=== PATIENT | male | born 1995 | race Caucasian/White ===

== ENCOUNTER 2019-04-20 12:49 | Emergency (ER) | payer SELFPAY ==
[~2019-04-20] VITALS: Ht 182.9 cm; Wt 85.5 kg
[2019-04-20 13:00] VITALS: BP 153/74; PULSE 78; RESP 24; Ht 182.9 cm; Wt 85.5 kg
[2019-04-20] MEDS ORDERED: BENZ-6 PO (14:17)
[2019-04-20] MEDS ORDERED: AZIT250T PO (14:17)
--- NOTE | 2019-04-20 14:21 | ERD ---
ER Documentation Chief Complaint Chief Complaint cough, sore thoat x 5 days HPI Patient is a 23-year-old male, no past medical history, presents the ER for concerns of a cough, congestion and sore throat x1 week. Patient states his cough nature. Patient reports using NyQuil and DayQuil with minimal alleviation of symptoms. Patient denies fevers or chills. Patient denies any chest pain or shortness of breath. Patient's daughter is a sick contact. ROS All systems reviewed and are negative except as per history of present illness. Medications Home Meds Active Scripts Azithromycin* (Zithromax*) 250 Mg Tablet, 250 MG PO .ZPACK DIRECTED, #6 TAB TAKE 500 MG (2 TABS) THE FIRST DAY THEN 250 MG (1 TAB) DAYS 2-5 Prov:MIKHAIL APONTE PA-C 04/20/19 Benzonatate* (Tessalon Perle*) 100 Mg Capsule, 100 MG PO Q8H PRN for COUGH, #20 CAP Prov:MIKHAIL APONTE PA-C 04/20/19 Allergies Allergies: Coded Allergies: No Known Allergy (Unverified , 07/01/13) PMhx/Soc Hx Alcohol Use: No Hx Substance Use: No Smoking Status: Never smoker FmHx Family History: No diabetes Physical Exam Vitals Vital Signs Date Temp Pulse Resp B/P (MAP) Pulse Ox O2 O2 Flow FiO2 Time Delivery Rate 04/20/19 98.5 78 24 153/74 98 13:00 (100) Physical Exam GENERAL: Well-developed, well-nourished male. Appears in no acute distress. HEAD: Normocephalic, atraumatic. No deformities or ecchymosis. EYE: Pupils equal, round, and reactive to light. EOMs intact. No conjunctival erythema. No eye discharge. ENT: External ear without any masses or tenderness. Auditory canals clear bilaterally. TM visualized bilaterally, non-erythematous, non-bulging. Nasal mucosa pink with no discharge. Oropharynx is pink without any tonsillar erythema or exudates. No uvula deviation. No kissing tonsils. NECK: Supple. No meningismus. Normal ROM of the neck. LUNG: Clear to auscultation bilaterally. No rhonchi, wheezing, rales or coarse breath sounds. HEART: Regular rate and rhythm. No murmurs, rubs or gallops. EXTREMITIES: Equal pulses bilaterally. No peripheral clubbing, cyanosis or edema. No unilateral leg swelling. NEUROLOGIC: Alert and oriented to person, place and time. Moving all four extremities. 5/5 strength in all extremities. Normal speech. Steady gait. SKIN: Normal color. Warm and dry. No rashes or lesions. Procedures/MDM MEDICAL DECISION MAKING: This is a 24-year-old male, no past medical history, who presents to the ER for concerns of cough and congestion for the last week. Patient denies any fevers or chills.. Patient was afebrile. Patient was not hypoxic. Patient denied recent travel. Cardiac exam was normal. Lung exam was normal. At this time, patient presentation is most consistent with bronchitis. Trial of Atarax will be given. Low suspicion for peritonsillar abscess, otitis media, meningitis, acute coronary syndrome, pneumothorax, pneumonia, TB, influenza, pertussis, GERD, allergic rhinitis. PRESCRIPTIONS: Azithromycin, Tessalon Perles DISCHARGE: At this time, patient is stable for discharge and outpatient management. I have instructed the patient to follow-up with his/her primary care physician in 1-2 days. If symptoms persist, patient may need to see a specialist for further examinations and testing. I have instructed the patient to promptly return to the ER at any time for any new or worsening symptoms including increased increased pain, fever, nausea, vomiting, numbness, shortness of breath, weakness, ongoing wheezing, retractions or LOC. The patient and/or family expressed understanding of and agreement with this plan. All questions were answered. Home care instructions were provided. Patients blood pressure was elevated (>120/80) but appears stable without evidence of hypertensive emergency, hypertensive urgency or end-organ failure. I had discussion with the patient about the risks of hypertension. I have advised the patient to follow up with his/her primary care physician for outpatient monitoring and treatment for hypertension in 2-3 days. I have instructed the patient to return to the ER for any new or worsening symptoms including chest pain, shortness of breath, headache, blurred vision, confusion, nausea, vomiting or LOC. Disclaimer: Inadvertent spelling and grammatical errors are likely due to EHR/dictation software use and do not reflect on the overall quality of patient care. Also, please note that the electronic time recorded on this note does not necessarily reflect the actual time of the patient encounter. Departure Diagnosis: Primary Impression: Bronchitis Condition: Fair Patient Instructions: Preventing Common Respiratory Infections Referrals: ROSA HERRERA MD (PCP) Additional Instructions: Call your primary care doctor TOMORROW for an appointment during the next 1-2 days.See the doctor sooner or return here if your condition worsens before your appointment time. MIKHAIL APONTE PA-C Apr 20, 2019 14:21
== END 2019-04-20 15:29 | disposition home or self-care (01) ==
LOC: FTE 12:49
DX: J40 Bronchitis, not specified as acute or chronic (principal)
CPT/HCPCS: 99283